=== PATIENT | female | born 1945 | race Caucasian/White ===

== ENCOUNTER → 2020-11-02 13:42 | Outpatient (BNVA) | payer MEDICARE, OTHER, SELFPAY | PROVIDERS: Visit Provider Internal Medicine | DX: T87.43 Infection of amputation stump, right lower extremity (principal) | CPT/HCPCS: 99212 ==

== ENCOUNTER 2021-02-11 20:29 | Emergency (ER) | payer MEDICARE, OTHER, MEDICAID, SELFPAY ==
[2021-02-11 20:35] VITALS: BP 197/57; PULSE 73; RESP 16; TEMP 36.8; O2SAT 100; BMI 18.7
[2021-02-11 20:41] VITALS: RESP 16
[2021-02-11 20:53] VITALS: BP 172/60; PULSE 71; RESP 16; O2SAT 100
[2021-02-11] MEDS: Acetaminophen 325 MG TABLET 975 MG PO (20:53)
[2021-02-11] MEDS: oxyCODONE HCl Immed Release 5 MG TABLET PO (20:55)
--- NOTE | 2021-02-11 20:56 | PC.NURSE ---
BP 197/57 notified
--- NOTE | 2021-02-11 22:53 | ED_ITS ---
HPI - General Adult General Chief complaint: Back Pain/Injury Stated complaint: cervical pain Time Seen by Provider: 02/11/21 20:46 Source: patient Mode of arrival: EMS Limitations: no limitations History of Present Illness HPI narrative: 75-year-old female who presents emergency department for evaluation of neck pain. The patient is a poor informant but he was able to give me some information. Patient is currently at [facility] for management of frequent falls and recent neck fracture. In reviewing information from [facility], the patient has a fracture of the 1st and 2nd vertebrae. Patient also has a fracture of her left elbow. Patient told me that she fell out of bed and fractured her elbow. She believes that she also fell out of bed and fractured her neck. She cannot tell me which facility she was seen at for this neck fracture. The patient is in a cervical collar. The information sent from the nursing facility does not specify exactly why they transferred her to the facility. Patient states that she has not been getting her pain medication on a regular basis and that when she gets medicated, does not help her pain. In reviewing her medications she, the patient is getting Percocet 5/325, 1 by mouth every 4 hours as needed for moderate pain and 1 by mouth every 6 hours as needed for moderate pain. She states that she has a constant, pain in her neck which she states is a sharp pain which is 10/10 at its worst. She states that here in the emergency department the pain is 10/10. She denies any numbness or weakness. She denies fever or chills. She denies chest pain, shortness of breath, abdominal pain. The patient states that she was living with her daughter, unfortunately, I do not have any information on next of kin in our computer system or on the transfer papers from the retirement facility. Related Data Allergies Allergy/AdvReac Type Severity Reaction Status Date / Time JERAMY Inhibitors Allergy Unknown Verified 02/11/21 20:45 fentanyl Allergy Unknown Verified 02/11/21 20:45 gabapentin Allergy Unknown Verified 02/11/21 20:45 hydromorphone Allergy Unknown Verified 02/11/21 20:45 Iodinated Contrast Media Allergy Unknown Verified 02/11/21 20:45 tramadol Allergy Unknown Verified 02/11/21 20:45 Review of Systems Review of Systems: Yes all other systems are reviewed and are negative [facility] Past Medical History [facility] Narrative: Past medical history: Diabetes mellitus, hypertension, myocardial infarction, congestive heart failure, fracture of the 1st and 2nd vertebrae, fracture of the left elbow. Social history: The patient states that she was living at home with her daughter but is currently residing at the [facility] Medical History (Updated 02/11/21 @ 23:04 by Jung Rios MD) Amputation stump infection Social History Social History Advance Directives: No Advance Directives Information Provided: No Physical Exam Vital Signs: Vital Signs: Last Vital Signs Temp 98.2 F 02/11/21 20:35 Pulse 71 02/11/21 20:53 Resp 16 02/11/21 20:53 BP 172/60 H 02/11/21 20:53 Pulse Ox 100 02/11/21 20:53 BMI result Body Mass Index 18.7 Const: Other: awake, alert, female patient, she is in a cervical collar. She is a poor informant and cannot tell me exactly when she fell and fractured her neck or when she fell and fractured her elbow. does not appear to be in significant pain but states that her pain is 10/10 in her neck. Orientation/consciousness: oriented to person and oriented to place HENMT: Head: Yes normal to inspection, Yes normocephalic and Yes atraumatic Ears: external ears normal General nose exam: Normal external nose present Face and sinus: Yes normal facial exam Mouth: Normal oral and palatal mucosa present Throat: Yes posterior oropharynx normal Eyes: General: appearance normal, both eyes and all related structures Pupils: Equal, round and reactive pupils present Neck: Other: The patient is in a cervical collar, she does have tenderness palpation of her cervical spine, the collar was not removed. Chest: Chest palpation & inspection: normal inspection of the chest and normal palpation of entire chest wall Resp: Effort & Inspection: normal respiratory effort and able to speak in complete sentences Auscultation: clear to auscultation bilaterally Cardio: Rate: regular rate Rhythm: regular rhythm Heart sounds: S1 normal heart sound present, S2 normal heart sound present and no murmurs GI: Inspection: Yes normal to inspection Palpation (GI): Soft to palpation, nontender and no guarding Auscultation: normal bowel sounds : General: Yes no CVA tenderness Back/Spine/Pelvis: Back: no CVA tenderness Skin: General skin exam: no rashes or lesions noted Neuro: General: oriented to person and oriented to place Cranial nerves: Yes CN's II-XII intact bilaterally and Yes Equal, round and reactive pupils p resent Cognition (Neuro): normal cognition Motor exam (neuro): 5/5 motor strength present throughout Extrem: Other: Left elbow is in a splint with an Jeramy wrap, the patient's fingers appear to normal, she has normal pulses and normal sensory of her left extremity. Psych: Appearance: grossly normal Speech and movement: Normal speech and movement present Affect: normal affect Attitude: cooperative Thought process: Normal thought process present Thought content: Normal thought c ontent present Course Course Course Narrative: 75-year-old female who has a recent fracture of her left elbow and recent fracture of her 1st and 2nd vertebrae, she is in cervical collar. She is stating that she is having severe pain in her neck and she believes that she is not being sufficiently medicated at her facility. Unfortunately, I do not know exactly how much pain medication she has been getting but she is prescribed acetaminophen/oxycodone 325/5 every 4-6 hours as needed for pain. Her physical examination is consistent with a cervical fracture but she has a normal neurologic exam, is also consistent with a fracture of her left elbow like a did not take the splint down but her extremity appears to be neurovascularly intact.Here in the emergency department she was initially given Tylenol 975 mg and oxycodone 5 mg orally with some improvement of her pain. This did give her some relief for pain. She still complaining 8/10 pain therefore she was ordered to get morphine 4 mg orally. In reviewing her medication list, morphine is not listed as an allergy. The patient will be discharged back to her care facility for further pain management by her providers at retirement facility. Discharge Plan Discharge Clinical Impression: Acute neck pain Patient Disposition: Xfer [facility] Transfer Details: your neck pain is caused by the fractures that you have in your neck. You need to continue to wear the cervical spine collar. Here in the emergency department your pain was treated with Tylenol 975 mg orally and oxycodone 5 mg orally. You also received morphine 15 mg orally. The retirement facility that your at will need to determine what pain medications to give you for your pain.
[2021-02-11] MEDS: Morphine Sulfate Immed Release 15 MG TABLET PO (23:17)
[2021-02-11 23:30] VITALS: BP 205/95; PULSE 73; TEMP 36.9; O2SAT 99
--- NOTE | 2021-02-11 23:30 | PC.NURSE ---
BP 205/95 MD aware ok with discharging pt with this BP
[2021-02-12 02:33] VITALS: RESP 16
[2021-02-12 03:18] VITALS: RESP 16
[2021-02-12 03:44] VITALS: BP 174/85; PULSE 78; RESP 16; TEMP 36.9; O2SAT 98
--- NOTE | 2021-02-12 04:08 | PC.NURSE ---
nurse to nurse report given to Wes BALL at [facility]
== END 2021-02-12 04:10 | disposition skilled nursing facility (03) ==
PROVIDERS: Emergency Provider Emergency Medicine Emergency Medical Services; PCP Family Medicine
DX: M54.2 Cervicalgia (principal); S12.000D Unspecified displaced fracture of first cervical vertebra, subsequent encounter for fracture with routine healing; S12.100D Unspecified displaced fracture of second cervical vertebra, subsequent encounter for fracture with routine healing; W06.XXXD Fall from bed, subsequent encounter; Z91.81 History of falling
CPT/HCPCS: 99283; 99284

== ENCOUNTER 2021-02-20 00:14 | Outpatient (REF) | payer MEDICARE, SELFPAY | END 2021-02-20 00:15 | disposition home or self-care (01) | LOC: HO.MMNH1L 00:14 | PROVIDERS: Visit Provider Family Medicine | DX: Z13.89 Encounter for screening for other disorder (principal) ==

== ENCOUNTER 2021-03-13 00:20 | Outpatient (REF) | payer MEDICARE, OTHER, SELFPAY | END 2021-03-13 00:21 | disposition home or self-care (01) | LOC: HO.MMNH1L 00:20 | PROVIDERS: Visit Provider Family Medicine | DX: Z13.89 Encounter for screening for other disorder (principal) ==

== ENCOUNTER 2021-03-20 00:46 | Outpatient (REF) | payer MEDICARE, OTHER, SELFPAY | END 2021-03-20 00:47 | disposition home or self-care (01) | LOC: HO.MMNH1L 00:46 | PROVIDERS: Visit Provider Family Medicine | DX: Z13.89 Encounter for screening for other disorder (principal) ==

== ENCOUNTER 2021-04-10 00:51 | Outpatient (REF) | payer MEDICARE, OTHER, SELFPAY | END 2021-04-10 00:52 | disposition home or self-care (01) | LOC: HO.MMNH1L 00:51 | PROVIDERS: Visit Provider Family Medicine | DX: Z13.89 Encounter for screening for other disorder (principal) ==